=== PATIENT | male | born 1940 | race Caucasian/White ===

== ENCOUNTER 2020-07-12 21:16 | Inpatient (IN) | payer MEDICARE, OTHER ==
[~2020-07-12] VITALS: Ht 177.8 cm; Wt 58.5 kg
[~2020-07-12 21:16] MED LIST: ACET-868 PO; CLON0.5T4 PO; LISI10TA5 PO; MAG30ORA PO; MIRT15TA7 PO; MULT-447 PO
--- NOTE | 2020-07-12 21:47 | NUR ---
PATIENT CAME TO ER BED 6 C/O COVID(+) WITH SOB UPON ARRIVAL AT 80% O2 SATURATION ON ROOM AIR FROM [facility]. PATIENT IS AAOX3. PATIENT HAS CLEAR LUNGS UPON AUSCULTATION FROM POSTERIOR AND ANTERIORLY. CONNECTED TO THE TRAFFIC CONTROL TECHNICIAN.
[2020-07-12] MEDS ORDERED: DEXAMETHASONE SOD PHOSPHATE 10 MG/ML VIAL ONE (21:50)
[2020-07-12 21:54] LABS: BASOPHILS % (AUTO) 0.4 % (0.0-2.0); HEMATOCRIT 44 % (39-51); HEMOGLOBIN 13.8 g/dL (13.5-17.5); LYMPHOCYTES # (AUTO) 3.3 /CMM (0.8-4.8); LYMPHOCYTES % (AUTO) 27.8 % (20.0-44.0); MEAN CORPUSCULAR HGB CONC 32 g/dl (31.0-36.0); MEAN CORPUSCULAR VOLUME 92 fL (80-96); MONOCYTES # (AUTO) 1.4 /CMM (0.1-1.30); MONOCYTES % (AUTO) 11.3 % (2.0-12.0); NEUTROPHILS # (AUTO) 7.3 /CMM (1.8-8.9); NEUTROPHILS % (AUTO) 60.5 % (43.0-81.0); PLATELET COUNT (AUTO) 175 /CMM (150-450); RED BLOOD CELL COUNT(AUTO) 4.75 MIL/uL (4.5-6.0)
[2020-07-12] MEDS ORDERED: DEXAMETHASONE SOD PHOSPHATE 10 MG/ML VIAL IV ONE (22:00)
[2020-07-12 22:05] LABS: CALCIUM, SERUM 8.1 mg/dL (8.5-10.1); CARBON DIOXIDE 27 mmol/L (21-32); CHLORIDE 107 mmol/L (98-107); CREATININE 1.1 mg/dL (0.6-1.3); GLUCOSE 118 mg/dL (74-106); POTASSIUM 4.9 mmol/L (3.5-5.1); SODIUM SERUM 144 mmol/L (136-145); UREA NITROGEN, BLOOD 48 mg/dL (7-18)
--- NOTE | 2020-07-12 22:15 | NUR ---
LACTIC 2.1
[2020-07-12 22:17] LABS: ALANINE AMINOTRANSFERASE 67 U/L (12-78); ALKALINE PHOSPHATASE 67 U/L (46-116); ASPARTATE AMINOTRANSFERASE 174 U/L (15-37); B-TYPE NATRIURETIC PEPTIDE 172 PG/ML (0-125); BILIRUBIN,TOTAL 0.3 mg/dL (0.2-1.0); TOTAL PROTEIN, SERUM 7.9 g/dL (6.4-8.2)
[2020-07-12 23:20] LABS: FERRITIN 380 ng/mL (8-388)
[2020-07-12 23:21] LABS: C-REACTIVE PROTEIN 10.7 mg/dL (0.0-0.9)
[2020-07-13] MEDS ORDERED: MAG HYDROX/AL HYDROX/SIMETH 30 ML UDC PO PRN ×2
[2020-07-13] MEDS ORDERED: ONDANSETRON HCL/PF 4 MG/2 ML VIAL IVP PRN
[2020-07-13] MEDS ORDERED: ZOLPIDEM TARTRATE 5 MG TABLET PO PRN
[2020-07-13] MEDS ORDERED: MAGNESIUM HYDROXIDE 30 ML UDC PO PRN
[2020-07-13] MEDS ORDERED: Z GUARD REMEDY 2 OZ OINT TP PRN
[2020-07-13] MEDS ORDERED: ACETAMINOPHEN 325 MG TABLET PO PRN
[2020-07-13 01:30] LABS: BILIRUBIN,DIRECT 0.1 mg/dL (0.0-0.2)
--- NOTE | 2020-07-13 01:36 | NUR ---
REPORT GIVEN TO SHAN MCMAHON FOR AMBER.
[2020-07-13 02:36] LABS: D-DIMER 15.57 mg/L(FEU (0.17-0.50)
--- NOTE | 2020-07-13 02:57 | NUR ---
PATIENT TAKEN TO ASSIGNED ROOM.
--- NOTE | 2020-07-13 03:00 | NUR ---
TELE/RN NOTES RECEIVED PATIENT TRANSFERRED FROM ER. PATIENT BROUGHT VIA GURNEY WITH RN MERLY AND YESI. NO INJURES SUSTAINED DURING TRANSPORT. PATIENT SAFELY PLACED IN BED. PATIENT IS ALERT AND ORIENTED X 2. BREATHING IS EVEN AND UNLABORED. NO SIGNS OF RESPIRATORILY DISTRESS NOTED. PATIENT ON 6L OF OXYGEN STAT AT 97 %. V/S ARE WITHIN NORMAL LIMITS. PATIENT BELONGINGS LIST SIGNED. PATIENT HAS REDNESS ON BUTTOCKS AREA. NO OPEN WOUNDS NOTED. PATIENT IN NO DISTRESS. IV ACCESS ON LEFT HAND #20G INTACT. SAFETY MEASURES ARE IN PLACE, BED IS LOCKED AND PLACED IN THE LOW POSITION. CALL LIGHT IS WITHIN REACH. WILL CONTINUE TO MONITOR.
[2020-07-13 04:00] VITALS: BP 146/99
--- NOTE | 2020-07-13 06:30 | NUR ---
TELE/RN CLOSING NOTES PATIENT IS IN BED RESTING. PATIENT IS ALERT AND ORIENTED X2. BREATHING IS EVEN AND UNLABORED. NO SIGNS OF RESPIRATORY DISTRESS OR SOB NOTED. TELE READING SR 75. PATIENT IS IN NO SIGNS OF DISTRESS. PATIENT HAS IV ACCESS ON LEFT HAND #20G SL, INTACT. ALL NEEDS HAVE BEEN MET DURING SHIFT. SAFETY MEASURES ARE IN PLACE, BED IS LOCKED AND PLACED IN THE LOW POSITION, SIDE RAILS UP X 2. CALL LIGHT IS WITHIN REACH. WILL ENDORSE CARE TO DAY SHIFT NURSE.
[2020-07-13 06:46] LABS: BASOPHILS % (AUTO) 0.3 % (0.0-2.0); HEMATOCRIT 43 % (39-51); HEMOGLOBIN 13.9 g/dL (13.5-17.5); LYMPHOCYTES # (AUTO) 2.8 /CMM (0.8-4.8); LYMPHOCYTES % (AUTO) 26.2 % (20.0-44.0); MEAN CORPUSCULAR HGB CONC 33 g/dl (31.0-36.0); MEAN CORPUSCULAR VOLUME 90 fL (80-96); MONOCYTES # (AUTO) 0.5 /CMM (0.1-1.30); MONOCYTES % (AUTO) 4.8 % (2.0-12.0); NEUTROPHILS # (AUTO) 7.3 /CMM (1.8-8.9); NEUTROPHILS % (AUTO) 68.7 % (43.0-81.0); PLATELET COUNT (AUTO) 187 /CMM (150-450); RED BLOOD CELL COUNT(AUTO) 4.74 MIL/uL (4.5-6.0); WHITE BLOOD COUNT (AUTO) 10.6 K/uL (4.3-11.0)
[2020-07-13 07:02] LABS: CALCIUM, SERUM 8.4 mg/dL (8.5-10.1); CREATININE 1.1 mg/dL (0.6-1.3); MAGNESIUM 3.3 mg/dL (1.8-2.4); PHOSPHORUS 3.5 mg/dL (2.5-4.9); POTASSIUM 4.7 mmol/L (3.5-5.1)
--- NOTE | 2020-07-13 07:15 | NUR ---
HEEL SEAM RUBBER NOTES PATIENT RECEIVED IN BED SLEEPING, AWAKEN BY NAME AND LIGHT TOUCH. ALERT AND ORIENTED X 1-2. ON NASAL CANNULA 4L, WITH NO SIGNS OF RESPIRATORY DISTRESS AT THIS TIME, WITH EVEN NON-LABORED BREATHING, AND NO SOB NOTED. ON LINER ROLL CHANGER, SINUS RHYTHM 70'S. PATIENT SKIN WARM AND DRY TO TOUCH. IV ACCESS INTACT AND PATENT. PATIENT PRESENTS WITH NO PAIN OR DISCOMFORT AT THIS TIME. ISOLATION PRECAUTIONS IMPLEMENTED. SAFETY PRECAUTIONS IMPLEMENTED WITH BED LOCKED, BED IN THE LOWEST POSITION, BILATERAL SIDE RAILS UP, BED ALARM ON, CALL LIGHT WITHIN EASY REACH, AND WILL CONTINUE TO MONITOR PATIENT.
[2020-07-13] MEDS: MULTIVITAMINS,THERAGRAN 1 UDTAB TABLET PO SCH (08:12)
[2020-07-13] MEDS: DEXAMETHASONE SOD PHOSPHATE 10 MG/ML VIAL IV SCH (08:13)
[2020-07-13] MEDS: LISINOPRIL (10MG) 10 MG TABLET PO SCH (08:20)
--- NOTE | 2020-07-13 11:10 | NUR ---
PACKER INSULATION NOTES INFORMED DR. LENORE NEWELL PATIENT'S VTE SCORE OF 3, WILL AWAIT FOR ORDERS OF PROPHYLAXIS AND CONTINUE TO MONITOR PATIENT AT THIS TIME.
[2020-07-13 12:00] VITALS: BP 107/61
[2020-07-13] MEDS: clonazePAM 0.5 MG TABLET PO PRN ×2 (12:08→18:12)
--- NOTE | 2020-07-13 12:08 | NUR ---
RETORT FIREMAN NOTES PATIENT STARTED BECOMING RESTLESS AND STARTED YELLING, PROVIDED COMFORT AND CALM ENVIRONMENT. PATIENT REMAINED ANXIOUS, ADMINISTERED PRN KLONOPIN PO 0.25mg ORDERED. WILL CONTINUE TO MONITOR PATIENT.
[2020-07-13] MEDS: ENOXAPARIN SODIUM 40 MG/0.4 ML DISP.SYRIN SQ SCH (13:38)
[2020-07-13 15:40] LABS: C-REACTIVE PROTEIN 12.7 mg/dL (0.0-0.9)
[2020-07-13 16:00] VITALS: BP 111/67
[2020-07-13] MEDS: CEFEPIME 2 GM in IV D5W 100 ML IV SCH (18:12)
--- NOTE | 2020-07-13 18:12 | NUR ---
LOCOMOTIVE PIPE FITTER NOTES PATIENT STARTED BECOMING ANXIOUS, PROVIDED COMFORT AND CALM ENVIRONMENT. PATIENT REMAINED ANXIOUS, ADMINISTERED PRN KLONOPIN PO 0.25mg ORDERED. WILL CONTINUE TO MONITOR PATIENT.
--- NOTE | 2020-07-13 18:41 | NUR ---
DUMP OPERATOR NOTES PATIENT IN BED AWAKE, ALERT AND ORIENTED X 1-2. ON NASAL CANNULA 4L, WITH NO SIGNS OF RESPIRATORY DISTRESS AT THIS TIME, WITH EVEN NON-LABORED BREATHING, AND NO SOB NOTED. ON FILTER WASHER AND PRESSER, SINUS RHYTHM 67. PATIENT SKIN KEPT CLEAN, WARM AND DRY TO TOUCH. IV ACCESS INTACT AND PATENT. PATIENT PRESENTS WITH NO PAIN OR DISCOMFORT AT THIS TIME. MET ALL OF PATIENT'S NEEDS. ISOLATION PRECAUTIONS IMPLEMENTED. SAFETY PRECAUTIONS IMPLEMENTED WITH BED LOCKED, BED IN THE LOWEST POSITION, BILATERAL SIDE RAILS UP, BED ALARM ON, AND CALL LIGHT WITHIN EASY REACH. WILL ENDORSE PLAN OF CARE TO UPCOMING RN.
[2020-07-13 20:00] VITALS: BP 124/69
--- NOTE | 2020-07-13 20:12 | NUR ---
RECEIVED IN BED AWAKE AND YELLING "HELP ME YOU "!!!!!" WHEN I ENTERED THE ROOM HE ASKED ME HOW I COULD HELP HIM PULLED HIM UP IN BED COVERED HIM TURNED OUT THE OVER HEAD LIGHT BEFORE THIS I STRAIGHT CATHED HIM ORDERED AND OBTAINED UA FOR CULTURE ORDERED AND THEN CALLED LAB TO P/U HE IS NICE ONE MINUTE THEN YELLING AND ANGRY THE NEXT
[2020-07-13 20:30] VITALS: BP 124/69
[2020-07-13] MEDS: MIRTAZAPINE 15 MG TABLET PO SCH (21:43)
[2020-07-14] VITALS (9 sets, daily range): BP systolic 101–158; BP diastolic 63–85
[2020-07-14] MEDS: clonazePAM 0.5 MG TABLET PO PRN ×2 (01:50→10:51)
--- NOTE | 2020-07-14 04:48 | NUR ---
CLOSING NOTES : KLONOPIN PO GIVEN X1 THIS 12 HOURS D/T YELLING OUT "HELP ME" "I CAN'T DO THIS MYSELF" HE RAMBLES . HE SLEEPS FOR PERIODS OF 1 TO 2 HOURS AND WAKES UP A VERBALLY RAMBLES AND YELLS. HE IS INCONT OF URINE FREQ kept dry and cleaned, turned on to sides using pillows to encourage to keep on sides, he would slide over and continue to lay on his back. unable to make he understand the importance of taking pressure off his buttock area. keeps the 02 n/c on SATS 96% on 4 liters 02. Droplet isolation maintained no SOB this 12 hours
[2020-07-14] MEDS: CEFEPIME 2 GM in IV D5W 100 ML IV SCH ×2 (05:22→17:05)
[2020-07-14 06:16] LABS: BASOPHILS % (AUTO) 0.1 % (0.0-2.0); HEMATOCRIT 42 % (39-51); HEMOGLOBIN 13.7 g/dL (13.5-17.5); LYMPHOCYTES # (AUTO) 3.8 /CMM (0.8-4.8); LYMPHOCYTES % (AUTO) 20.8 % (20.0-44.0); MEAN CORPUSCULAR HGB CONC 33 g/dl (31.0-36.0); MEAN CORPUSCULAR VOLUME 90 fL (80-96); MONOCYTES # (AUTO) 0.9 /CMM (0.1-1.30); MONOCYTES % (AUTO) 5.2 % (2.0-12.0); NEUTROPHILS # (AUTO) 13.6 /CMM (1.8-8.9); NEUTROPHILS % (AUTO) 73.9 % (43.0-81.0); PLATELET COUNT (AUTO) 217 /CMM (150-450); RED BLOOD CELL COUNT(AUTO) 4.65 MIL/uL (4.5-6.0); WHITE BLOOD COUNT (AUTO) 18.4 K/uL (4.3-11.0)
--- NOTE | 2020-07-14 07:20 | NUR ---
DRAWING SUPERVISOR NOTES PATIENT RECEIVED IN BED AWAKE, ALERT AND ORIENTED X 1-2. ON NASAL CANNULA 4L, WITH NO SIGNS OF RESPIRATORY DISTRESS AT THIS TIME, WITH EVEN NON-LABORED BREATHING, AND NO SOB NOTED. ON FIRE SUPPORT MAN, SINUS RHYTHM 66. PATIENT SKIN WARM AND DRY TO TOUCH. IV ACCESS INTACT AND PATENT. PATIENT PRESENTS WITH NO PAIN OR DISCOMFORT AT THIS TIME. ISOLATION PRECAUTIONS IMPLEMENTED. SAFETY PRECAUTIONS IMPLEMENTED WITH BED LOCKED, BED IN THE LOWEST POSITION, BILATERAL SIDE RAILS UP, BED ALARM ON, CALL LIGHT WITHIN EASY REACH, AND WILL CONTINUE TO MONITOR PATIENT.
[2020-07-14 07:42] LABS: CALCIUM, SERUM 8.6 mg/dL (8.5-10.1); CREATININE 1.2 mg/dL (0.6-1.3); MAGNESIUM 3.4 mg/dL (1.8-2.4); PHOSPHORUS 3.6 mg/dL (2.5-4.9); POTASSIUM 3.9 mmol/L (3.5-5.1)
[2020-07-14] MEDS: DEXAMETHASONE SOD PHOSPHATE 10 MG/ML VIAL IV SCH (08:24)
[2020-07-14] MEDS: MULTIVITAMINS,THERAGRAN 1 UDTAB TABLET PO SCH (08:24)
[2020-07-14] MEDS: LISINOPRIL (10MG) 10 MG TABLET PO SCH (08:25)
[2020-07-14] MEDS: ENOXAPARIN SODIUM 40 MG/0.4 ML DISP.SYRIN SQ SCH (08:29)
--- NOTE | 2020-07-14 10:00 | NUR ---
PALLIATIVE CARE SPECIALIST NOTES NOTIFIED DR. LENORE AVENDAÑO REGARDING PATIENT'S LABS; BUN 78 AND WBC 18.4, NO NEW ORDERS AT THIS TIME, WILL CONTINUE TO MONITOR PATIENT.
--- NOTE | 2020-07-14 10:52 | NUR ---
SUPERVISOR PAINT ROLLER COVERS NOTES PATIENT STARTED BECOMING RESTLESS AND STARTED YELLING NON-STOP, PROVIDED COMFORT AND CALM ENVIRONMENT. PATIENT REMAINED ANXIOUS, ADMINISTERED PRN KLONOPIN PO 0.25mg ORDERED. WILL CONTINUE TO MONITOR PATIENT.
[2020-07-14 13:43] LABS: C-REACTIVE PROTEIN 7.7 mg/dL (0.0-0.9)
[2020-07-14] MEDS: HYDROCODONE/APAP 5/325MG TABLET PO PRN ×2 (15:38→23:59)
--- NOTE | 2020-07-14 15:38 | NUR ---
DYE TANK TENDER NOTES PATIENT SCREAMING AND YELLING, "I AM IN PAIN, MY LEGS ARE HURTING!!!" REPOSITIONED PATIENT AND PATIENT STARTED TO SCREAM LOUDER. PROVIDED COMFORT MEASURES TO PATIENT, AND PATIENT STATING STILL IN PAIN, ADMINISTERED PRN NORCO ORDERED. WILL CONTINUE TO MONITOR PATIENT.
--- NOTE | 2020-07-14 18:13 | NUR ---
PL SQL DEVELOPER NOTES PATIENT IN BED SLEEPING, AWAKEN BY NAME AND LIGHT TOUCH, ALERT AND ORIENTED X 1-2. ON NASAL CANNULA 4L, WITH NO SIGNS OF RESPIRATORY DISTRESS AT THIS TIME, WITH EVEN NON-LABORED BREATHING, AND NO SOB NOTED. ON NATURAL REMEDY CONSULTANT, SINUS RHYTHM 60S. PATIENT SKIN KEPT CLEAN, WARM AND DRY TO TOUCH. IV ACCESS INTACT AND PATENT. PATIENT PRESENTS WITH NO PAIN OR DISCOMFORT AT THIS TIME. MET ALL OF PATIENT'S NEEDS. ISOLATION PRECAUTIONS IMPLEMENTED. SAFETY PRECAUTIONS IMPLEMENTED WITH BED LOCKED, BED IN THE LOWEST POSITION, BILATERAL SIDE RAILS UP, BED ALARM ON, AND CALL LIGHT WITHIN EASY REACH. WILL ENDORSE PLAN OF CARE TO UPCOMING RN.
[2020-07-14] MEDS: MIRTAZAPINE 15 MG TABLET PO SCH (22:19)
--- NOTE | 2020-07-14 23:59 | NUR ---
prn norco: pt yelling screaming, agitated, c/o bilateral leg pain 03/08, prn norco 5/325 mg tab po administered at this time.
[2020-07-15] VITALS: BP 107/72
[2020-07-15 04:00] VITALS: BP 99/62
[2020-07-15] MEDS: CEFEPIME 2 GM in IV D5W 100 ML IV SCH ×2 (05:30→18:04)
[2020-07-15] MEDS: clonazePAM 0.5 MG TABLET PO PRN (05:52)
--- NOTE | 2020-07-15 05:52 | NUR ---
prn klonopin: prn klonopin 0.25mg tab administered to pt at this tim4e for anxiety restlessness agitation.
--- NOTE | 2020-07-15 06:41 | NUR ---
End of shift report: Kept on airborne isolation, covid positive, n95 with face shield, ppe utilized. Sinus rhythm hr 80s. Pt a/o x1, with multiple episode of yelling, screaming, and fighting staff, prn norco administered for c/o leg pain, also prn klonopin administered for agitation, scheduled remeron administered. Pt kept on aspirations precaution, kept high fowlers during medication administration and assisted feeding pt, able to ate 100% of chocolate pudding, apple sauce and 2boxes (120ml each) of cranberry and apple juice using cup, no straw. Iv access remains patent and flushing well, on hl, no s/s of iv infiltration noted. Scd in use. Mepilex applied along ear as pt using oxygen via nasal cannula. Pt on 3L, spo2 ranging 93-95%. Remains afebrile. On maria g mattress. Assisted can in providing bed bath to pt, wound care provided. Ble kept offloaded on pillows. 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 Safety precautions for fall initiated, call light in reach, will endorse to day rn for beto.
--- NOTE | 2020-07-15 07:10 | NUR ---
DIRECTOR OF PROGRAM MANAGEMENT NOTES RECEIVED PATIENT IN BED, ALERT AND AWAKE ORIENTED X1. HOB ELEVATED, ON 3L/MIN VIA NC MORENITA WELL WITH SPO2 AT 95%. NOTED PATIENT WITH EPISODES OF YELLING, AND SCREAMING FOR NO APPARENT REASON. ON TELE MONITORING SR: 69. LEFT HAND # 20 SL INTACT AND PATENT. BED IN LOWEST POSITION, LOCKED. BED ALARM ON. FREQUENT VISUAL CHECK DONE.
[2020-07-15 07:21] LABS: BASOPHILS % (AUTO) 0.1 % (0.0-2.0); HEMATOCRIT 42 % (39-51); HEMOGLOBIN 13.3 g/dL (13.5-17.5); LYMPHOCYTES # (AUTO) 4.1 /CMM (0.8-4.8); LYMPHOCYTES % (AUTO) 22.2 % (20.0-44.0); MEAN CORPUSCULAR HGB CONC 32 g/dl (31.0-36.0); MEAN CORPUSCULAR VOLUME 90 fL (80-96); MONOCYTES % (AUTO) 5.4 % (2.0-12.0); NEUTROPHILS # (AUTO) 13.4 /CMM (1.8-8.9); NEUTROPHILS % (AUTO) 72.3 % (43.0-81.0); PLATELET COUNT (AUTO) 239 /CMM (150-450); RED BLOOD CELL COUNT(AUTO) 4.63 MIL/uL (4.5-6.0); WHITE BLOOD COUNT (AUTO) 18.5 K/uL (4.3-11.0)
[2020-07-15 07:41] LABS: CALCIUM, SERUM 7.9 mg/dL (8.5-10.1); MAGNESIUM 3.4 mg/dL (1.8-2.4); POTASSIUM 4.1 mmol/L (3.5-5.1)
[2020-07-15 08:00] VITALS: BP 152/82
[2020-07-15] MEDS: DEXAMETHASONE SOD PHOSPHATE 10 MG/ML VIAL IV SCH (09:29)
[2020-07-15] MEDS: ENOXAPARIN SODIUM 40 MG/0.4 ML DISP.SYRIN SQ SCH (09:30)
[2020-07-15] MEDS: MULTIVITAMINS,THERAGRAN 1 UDTAB TABLET PO SCH (09:31)
[2020-07-15] MEDS: LISINOPRIL (10MG) 10 MG TABLET PO SCH (09:31)
[2020-07-15] MEDS: HYDROCODONE/APAP 5/325MG TABLET PO PRN ×3 (09:32→22:18)
--- NOTE | 2020-07-15 09:50 | NUR ---
WOUND CARE CONSULT: REVIEWED CHART, NURSING DOCUMENTATION AND PHOTOS WHICH INDICATE MULTIPLE INTACT DEEP TISSUE INJURIES TO BILATERAL EARS. SACRUM AND BUTTOCKS, PRESENT ON ADMISSION. RECOMMENDATIONS MADE FOR SKIN PROTECTION. DISCUSSED WITH NURSING STAFF. [facility] MD IN AGREEMENT WITH PLAN OF CARE.
[2020-07-15 12:00] VITALS: BP 145/83
[2020-07-15 13:14] LABS: C-REACTIVE PROTEIN 3.4 mg/dL (0.0-0.9)
[2020-07-15 16:00] VITALS: BP 155/80
--- NOTE | 2020-07-15 18:00 | NUR ---
INSURANCE MARKETING SPECIALIST NOTES RECEIVED PATIENT IN BED, ALERT AND AWAKE ORIENTED X1. HOB ELEVATED, ON 3L/MIN VIA NC MORENITA WELL WITH SPO2 AT 95%. NOTED PATIENT WITH EPISODES OF YELLING, AND SCREAMING FOR NO APPARENT REASON. ON TELE MONITORING SR: 69. LEFT HAND # 20 SL INTACT AND PATENT. BED IN LOWEST POSITION, LOCKED. BED ALARM ON. FREQUENT VISUAL CHECK DONE. Addendum: 07/15/20 at 1853 by JASON SPARKS RN WRONG DOCUMENTATION ENTRY
--- NOTE | 2020-07-15 18:57 | NUR ---
BREASTFEEDING PROGRAM COORDINATOR NOTES PATIENT RESTING COMFORTABLY IN BED, ASLEEP. BUT AROUSABLE TO VERBAL AND TACTILE STIMULI. ALERT AND ORIENTED X1, CONFUSED. HOB ELEVATED. TITRATED PATIENT DURING THE SHIFT, NOW ON ROOM AIR WITH SPO2 94-96%. C/O PAIN MEDICATED ORDERED. STILL NOTED PATIENT WITH EPISODES OF YELLING, AND SCREAMING DURING THE SHIFT. DURING CARE, PATIENT MAKES A FIST AND PRETENDS TO PUNCH STAFF DESPITE OF EDUCATION AND EXPLANATIONS GIVEN PRIOR TO CARE. LEFT HAND # 20 SL INTACT AND PATENT. BED IN LOWEST POSITION, LOCKED. BED ALARM ON. FREQUENT VISUAL CHECK DONE. IN NO APPARENT DISTRESS.
--- NOTE | 2020-07-15 19:30 | NUR ---
MERCHANDISE COLLECTOR NOTE: PATIENT RESTING IN BED, NO ACUTE DISTRESS NOTED. BREATHING EVEN AND UNLABORED, NO SOB NOTED. IV TO LEFT HAND IN PLACE. ISOLATION PRECAUTIONS OBSERVED. BED LOCKED AND IN LOWEST POSITION, CALL LIGHT IN REACH. WILL CONTINUE TO MONITOR.
[2020-07-15 20:00] VITALS: BP 151/83
[2020-07-15] MEDS: MIRTAZAPINE 15 MG TABLET PO SCH (22:18)
--- NOTE | 2020-07-15 22:30 | NUR ---
MILLER DISTILLERY NOTE: PATIENT COMPLAINS OF PAIN TO BACK 04/08, NORCO 5/325MG 1 TAB ORAL GIVEN PER MD ORDER. WILL CONTINUE TO MONITOR.
[2020-07-16] MEDS: clonazePAM 0.5 MG TABLET PO PRN ×2 (00:38→13:20)
--- NOTE | 2020-07-16 00:45 | NUR ---
GEOSPATIAL IMAGERY INTELLIGENCE ANALYST NOTE: PATIENT AGITATED AND SCREAMING, KLONOPIN 0.25MG ORAL GIVEN PER MD ORDER. WILL CONTINUE TO MONITOR.
[2020-07-16 04:00] VITALS: BP 109/73
[2020-07-16 06:12] LABS: BASOPHILS % (AUTO) 0.2 % (0.0-2.0); HEMATOCRIT 44 % (39-51); HEMOGLOBIN 13.9 g/dL (13.5-17.5); LYMPHOCYTES # (AUTO) 4.6 /CMM (0.8-4.8); LYMPHOCYTES % (AUTO) 27.7 % (20.0-44.0); MEAN CORPUSCULAR HGB CONC 32 g/dl (31.0-36.0); MEAN CORPUSCULAR VOLUME 90 fL (80-96); MONOCYTES % (AUTO) 6.2 % (2.0-12.0); NEUTROPHILS % (AUTO) 65.9 % (43.0-81.0); PLATELET COUNT (AUTO) 278 /CMM (150-450); RED BLOOD CELL COUNT(AUTO) 4.81 MIL/uL (4.5-6.0); WHITE BLOOD COUNT (AUTO) 16.7 K/uL (4.3-11.0)
[2020-07-16] MEDS: CEFEPIME 2 GM in IV D5W 100 ML IV SCH ×2 (06:16→17:02)
[2020-07-16 06:34] LABS: CALCIUM, SERUM 8.3 mg/dL (8.5-10.1); MAGNESIUM 3.3 mg/dL (1.8-2.4); POTASSIUM 4.4 mmol/L (3.5-5.1)
[2020-07-16] MEDS: HYDROCODONE/APAP 5/325MG TABLET PO PRN ×4 (06:34→23:56)
--- NOTE | 2020-07-16 06:35 | NUR ---
ASSEMBLY LOADER NOTE: PATIENT RESTING IN BED, NO ACUTE DISTRESS NOTED. BREATHING EVEN AND UNLABORED, NO SOB NOTED. IV TO LEFT HAND IN PLACE. PATIENT COMPLAINS OF BACK PAIN 8/, NORCO 5/325MG 1 TAB ORAL GIVEN PER MD ORDER. ISOLATION PRECAUTIONS OBSERVED. BED LOCKED AND IN LOWEST POSITION, CALL LIGHT IN REACH. WILL ENDORSE TO DAY NURSE TO CONTINUE WITH PLAN OF CARE.
--- NOTE | 2020-07-16 07:30 | NUR ---
SENIOR TALENT MANAGEMENT CONSULTANT NOTES PT IN BED, AWAKE, ALERT AND VERBALLY RESPONSIVE, NO SIGN OF PAIN, NOT IN DISTRESS, ON ROOM AIR, TOLERATING WELL, WITH CONFUSION, SAFETY PRECAUTIONS OBSERVED, KEPT DISPATCH MACHINE RUNNER BED.
[2020-07-16 08:00] VITALS: BP 120/92
[2020-07-16] MEDS: DEXAMETHASONE SOD PHOSPHATE 10 MG/ML VIAL IV SCH (09:01)
[2020-07-16] MEDS: MULTIVITAMINS,THERAGRAN 1 UDTAB TABLET PO SCH (09:02)
[2020-07-16] MEDS: LISINOPRIL (10MG) 10 MG TABLET PO SCH (09:02)
[2020-07-16] MEDS: ENOXAPARIN SODIUM 40 MG/0.4 ML DISP.SYRIN SQ SCH (09:11)
--- NOTE | 2020-07-16 11:59 | NUR ---
PEDIGREE RESEARCHER NOTES PT IN BED, ASLEEP, EASY TO AROUSE, ALERT TO SELF, VERBALLY RESPONSIVE, ASSISTED WITH MEALS, TOLERATING ROOM AIR, SEEN BY DR. CARSON AND DR. GROVER, SAFETY PRECAUTIONS OBSERVED, NEEDS ATTENDED.
[2020-07-16 12:00] VITALS: BP 133/80
[2020-07-16 12:31] LABS: C-REACTIVE PROTEIN 2.6 mg/dL (0.0-0.9)
[2020-07-16 16:00] VITALS: BP 153/95
--- NOTE | 2020-07-16 18:02 | NUR ---
ASSAULT AMPHIBIOUS VEHICLE OFFICER NOTES PT IN BED, RESTING, AWAKE, ALERT, WITH EPISODES OF YELLING AT TIMES, PAIN MEDS GIVEN ORDERED, PM CARE PROVIDED, PM MEDS GIVEN ORDERED, ASSISTED WITH DINNER, ALL NEEDS ATTENDED.
--- NOTE | 2020-07-16 19:05 | NUR ---
SUPERVISOR TESTING OPENING NOTES RECEIVED PATIENT IN BED SLEEPING EASILY AROUSABLE, ON ROOM AIR CURRENT 02 SAT 94%, RESPIRATIONS EVEN AND UNLABORED WITH EQUAL RISE AND FALL OF CHEST, APPEARS COMFORTABLE FREE OF PAIN,IV SITE TO LEFT HAND # 20 G INTACT AND PATENT, NO REDNESS , NO INFILTRATION PRESENT. ON PHOTOGRAPHS CURATOR SR 97.SAFETY PRECAUTIONS RENDERED, LOW BED AND LOCKED, BED ALARM IN PLACE, ORIENTED TO STAFF AND CALL LIGHT AND KEPT WITHIN REACH, ALL NEEDS ATTENDED AT THIS TIME, WILL CONTINUE TO MONITOR AND ATTEND TO NEEDS. REMAINS COMFORTABLE AT THIS TIME.
[2020-07-16 20:00] VITALS: BP 117/42
[2020-07-16 20:14] VITALS: BP 117/42
[2020-07-16] MEDS: MIRTAZAPINE 15 MG TABLET PO SCH (21:47)
--- NOTE | 2020-07-16 23:56 | NUR ---
agronomy internship notes pt complained of pain to generalized areas states "my neck my back my legs" norco prn offered patient agreed, norco prn given as ordered, repositioned and provided dim lights and warm blanket will continue to monitor for effectiveness.
[2020-07-17] VITALS (8 sets, daily range): BP systolic 117–155; BP diastolic 42–90
[2020-07-17] MEDS: clonazePAM 0.5 MG TABLET PO PRN ×2 (02:45→15:04)
--- NOTE | 2020-07-17 02:46 | NUR ---
rn notes noted patient anxious offered, klonopin 0.25mg as ordered, patient agreed and given. klonopin 0.25mg given as ordered. rest witnessed and wasted with another rn chiki.
--- NOTE | 2020-07-17 06:23 | NUR ---
STAPLING MACHINE OPERATOR CLOSING NOTES RECEIVED PATIENT IN BED SLEEPING EASILY AROUSABLE, ON ROOM AIR CURRENT 02 SAT 97%, RESPIRATIONS EVEN AND UNLABORED WITH EQUAL RISE AND FALL OF CHEST, APPEARS COMFORTABLE FREE OF PAIN, KLONOPIN ORDERED EFFECTIVE , PATIENT SLEPT . IV SITE TO LEFT HAND # 20 G INTACT AND PATENT, NO REDNESS , NO INFILTRATION PRESENT. ON GARMENT SUPERVISOR SR 66.SAFETY PRECAUTIONS RENDERED, LOW BED AND LOCKED, BED ALARM IN PLACE, CALL LIGHT KEPT WITHIN REACH, ALL NEEDS ATTENDED AT THIS TIME, WILL CONTINUE TO MONITOR AND ATTEND TO NEEDS. REMAINS COMFORTABLE AT THIS TIME AND WILL ENDORSE TO NEXT SHIFT, WOUND CARE PROVIDED TO LEFT AND RIGHT BUTTOCKS AREA AND SACRAL SCATTERED REDNESS/OPEN AREAS, REPOSITIONED AND ENCOURAGED.
[2020-07-17 07:11] LABS: BASOPHILS % (AUTO) 0.1 % (0.0-2.0); HEMATOCRIT 44 % (39-51); HEMOGLOBIN 14.2 g/dL (13.5-17.5); LYMPHOCYTES % (AUTO) 31.3 % (20.0-44.0); MEAN CORPUSCULAR HGB CONC 32 g/dl (31.0-36.0); MEAN CORPUSCULAR VOLUME 90 fL (80-96); MONOCYTES # (AUTO) 0.9 /CMM (0.1-1.30); MONOCYTES % (AUTO) 7.3 % (2.0-12.0); NEUTROPHILS # (AUTO) 7.9 /CMM (1.8-8.9); NEUTROPHILS % (AUTO) 61.3 % (43.0-81.0); PLATELET COUNT (AUTO) 287 /CMM (150-450); WHITE BLOOD COUNT (AUTO) 12.9 K/uL (4.3-11.0)
[2020-07-17 07:26] LABS: CALCIUM, SERUM 8.2 mg/dL (8.5-10.1); CREATININE 0.9 mg/dL (0.6-1.3); MAGNESIUM 3.1 mg/dL (1.8-2.4); PHOSPHORUS 2.9 mg/dL (2.5-4.9); POTASSIUM 4.2 mmol/L (3.5-5.1)
--- NOTE | 2020-07-17 07:36 | NUR ---
TELE/RN OPENING NOTES RECEIVED PATIENT AWAKE ON BED. PATIENT ALERT AND ORIENTED X 0-1. PATIENT IN NO APPARENT RESPIRATORY DISTRESS NOTED. NO SIGN AND SYMPTOM OF PAIN NOTED AT THIS TIME. PATIENT IN TELE MONITOR READING SINUS JAKE 54. WILL CONTINUE TO MONITOR.
--- NOTE | 2020-07-17 07:39 | NUR ---
TELE/RN OPENING NOTES RECEIVED PATIENT SLEEPING ON BED, EASILY AROUSABLE BY NAME AND LIGHT TOUCH. PATIENT ALERT AND ORIENTED X 4. PATIENT IN NO APPARENT RESPIRATORY DISTRESS NOTED. NO COMPLAINED OF PAIN NOTED AT THIS TIME. PATIENT IN TELE MONITOR READING SINUS RHYTHM 68 BPM. WILL CONTINUE TO MONITOR. Addendum: 07/17/20 at 0745 by BERT LI RN ERROR
[2020-07-17] MEDS: HYDROCODONE/APAP 5/325MG TABLET PO PRN ×3 (08:37→21:20)
[2020-07-17] MEDS: MULTIVITAMINS,THERAGRAN 1 UDTAB TABLET PO SCH (08:38)
[2020-07-17] MEDS: LISINOPRIL (10MG) 10 MG TABLET PO SCH (08:38)
[2020-07-17] MEDS: DEXAMETHASONE SOD PHOSPHATE 10 MG/ML VIAL IV SCH (08:39)
[2020-07-17] MEDS: ENOXAPARIN SODIUM 40 MG/0.4 ML DISP.SYRIN SQ SCH (08:40)
--- NOTE | 2020-07-17 14:58 | NUR ---
TELE/RN NOTES PATIENT WAS ANXIOUS,YELLING, SHOUTING, WITH A GRIMACE FACE AND CRYING. KLONOPIN 0.25MG 1/2 TAB AND NORCO 5/325MG 1 TAB WAS GIVEN. WILL CONTINUE TO MONITOR.
--- NOTE | 2020-07-17 18:40 | NUR ---
TELE/RN CLOSING NOTES PATIENT IS ON BED. ALERT AND ORIENTED X1. PATIENT IN NO APPARENT RESPIRATORY DISTRESS NOTED. NO SIGN AND SYMPTOM OF PAIN AT THIS TIME. IN ROOM AIR AND SATURATION 95%. TELE MONITOR IN PLACED READING SB-SR (51-91 BPM). IV ACCESS AT LEFT HAND # 20G PATENT AND INTACT. SEEN AND EXAMINED BY MD WITH ORDERS MADE AND CARRIED OUT. ALL MEDICATION WAS GIVEN. SAFETY PRECAUTION WAS IN PLACED. CHECKED PATIENT EVERY 2 HOURS. BED IN LOWEST POSITION AND LOCKED. SIDERAILS UP X2. CALL LIGHT WITHIN REACH. WILL ENDORSED TO MASSEUR/MASSEUSE FOR AMBER.
--- NOTE | 2020-07-17 19:00 | NUR ---
RN OPENING NOTES Received patient, awake, resting on bed, with confusion noted. Pt noted with aggressive behavior, cursing the staff and refusing to be cleaned. On tele monitor with Sinus Valentino noted. On RA, no s/sx of distress/discomfort noted. On fall and aspiration precautions. Will continue to monitor accordingly.
[2020-07-17] MEDS: MIRTAZAPINE 15 MG TABLET PO SCH (21:20)
[2020-07-18] VITALS: BP 138/50
[2020-07-18] MEDS: clonazePAM 0.5 MG TABLET PO PRN ×2 (01:11→08:04)
[2020-07-18] MEDS: HYDROCODONE/APAP 5/325MG TABLET PO PRN ×2 (04:11→13:00)
--- NOTE | 2020-07-18 06:49 | NUR ---
RN CLOSING NOTES Pt on bed, afebrile the whole shift. All nursing needs attended, due meds given as ordered. No new unusualities noted. Kept on bed clean, dry and comfortable. Endorsed.
--- NOTE | 2020-07-18 07:30 | NUR ---
RN OPENING NOTE THE PATIENT IS RECEIVED IN BED. PATIENT IS ALERT AND ORIENTED TO SELF. ABLE TO MAKE NEEDS KNOWN VERBALLY. PATIENT DENIES PAIN. PATIENT IS IN ROOM AIR AND DENIES SOB. RESPIRATION IS REGULAR AND UNLABORED. TELE BOX READING IS SR. LEFT HAND G 20 PATENT AND SALINE LOCKED. BED LOW AND LOCKED. SIDE RAILS UP X3. CALL LIGHT WITHIN REACH. WILL CONTINUE TO MONITOR.
[2020-07-18 08:00] VITALS: BP 109/61
[2020-07-18] MEDS: MULTIVITAMINS,THERAGRAN 1 UDTAB TABLET PO SCH (08:04)
[2020-07-18] MEDS: DEXAMETHASONE SOD PHOSPHATE 10 MG/ML VIAL IV SCH (08:04)
[2020-07-18] MEDS: ENOXAPARIN SODIUM 40 MG/0.4 ML DISP.SYRIN SQ SCH (08:05)
[2020-07-18] MEDS: LISINOPRIL (10MG) 10 MG TABLET PO SCH (08:17)
[2020-07-18 11:23] LABS: BASOPHILS # (AUTO) 0.1 /CMM (0.0-0.2); BASOPHILS % (AUTO) 0.4 % (0.0-2.0); EOSINOPHILS % (AUTO) 0.1 % (0.0-6.0); HEMATOCRIT 42 % (39-51); HEMOGLOBIN 13.7 g/dL (13.5-17.5); LYMPHOCYTES # (AUTO) 3.9 /CMM (0.8-4.8); LYMPHOCYTES % (AUTO) 22.1 % (20.0-44.0); MEAN CORPUSCULAR HGB CONC 33 g/dl (31.0-36.0); MEAN CORPUSCULAR VOLUME 88 fL (80-96); MONOCYTES # (AUTO) 0.8 /CMM (0.1-1.30); MONOCYTES % (AUTO) 4.7 % (2.0-12.0); NEUTROPHILS % (AUTO) 72.7 % (43.0-81.0); PLATELET COUNT (AUTO) 303 /CMM (150-450); RED BLOOD CELL COUNT(AUTO) 4.71 MIL/uL (4.5-6.0); WHITE BLOOD COUNT (AUTO) 17.8 K/uL (4.3-11.0)
[2020-07-18 11:36] LABS: CREATININE 0.9 mg/dL (0.6-1.3); MAGNESIUM 2.7 mg/dL (1.8-2.4); POTASSIUM 4.2 mmol/L (3.5-5.1)
[2020-07-18 12:00] VITALS: BP 122/78
--- NOTE | 2020-07-18 16:00 | NUR ---
RN CLOSING NOTE THE PATIENT ALERT AND ORIENTED X1. PATIENT DENIES PAIN AT THIS TIME. IN ROOM AIR AND OXYGEN SATURATION IS AT 94%. DENIES SOB. RESPIRATION REGULAR AND UNLABORED. REMOVED LEFT HAND G 20 IV AND NO BLEEDING NOTED. DISCHARGE EDUCATION/INSTRUCTIONS GIVEN TO THE PATIENT AND RECEIVING NURSE JET. THE PATIENT IS PICKED UP BY AMBULANCE. PATIENT LEFT THE HOSPITAL IN STABLE CONDITION.
== END 2020-07-18 16:20 | DRG 177 ==
LOC: ER 21:20 → TELE2 07-13 01:19
PROVIDERS: ADMIT Family Medicine
DX: U07.1 COVID-19 (principal); J12.89 Other viral pneumonia; J96.01 Acute respiratory failure with hypoxia; N17.0 Acute kidney failure with tubular necrosis; E44.1 Mild protein-calorie malnutrition; E87.2 Acidosis; E87.0 Hyperosmolality and hypernatremia; M62.82 Rhabdomyolysis; J44.0 Chronic obstructive pulmonary disease with (acute) lower respiratory infection; I25.10 Atherosclerotic heart disease of native coronary artery without angina pectoris; F03.90 Unspecified dementia, unspecified severity, without behavioral disturbance, psychotic disturbance, mood disturbance, and anxiety; I10 Essential (primary) hypertension; Z79.899 Other long term (current) drug therapy; F20.9 Schizophrenia, unspecified; F41.9 Anxiety disorder, unspecified; E86.0 Dehydration; F09 Unspecified mental disorder due to known physiological condition; R62.7 Adult failure to thrive
CPT/HCPCS: 36415; 71045-TC; 80048-TC; 80053-TC; 80061-TC; 82248-TC; 82550-TC; 82553; 82728-TC; 83605-TC; 83615-TC; 83735-TC; 83880; 84100-TC; 84484-TC; 85025-TC; 85378-TC; 85730-TC; 86140-TC; 87081-TC; 87086-TC; G0378; J0692; J1100; J1650; J7050; J7060; U0003